=== PATIENT | male | born 1995 | race African-American/Black ===

== ENCOUNTER 2017-04-05 17:48 | Emergency (ER) | payer OTHER ==
[~2017-04-05 17:48] MED LIST: A/T/S 2% GEL30 GM TOP
[2017-04-09 08:41] LABS: CHLAMYDIA TRACH Detected (Not Detected); N GONOR Not Detected (Not Detected)
== END 2017-04-05 18:30 | disposition home or self-care (01) ==
LOC: CED 17:48 → CFTX 17:48 → CED 18:28 → CFTX 18:28
PROVIDERS: Physician Assistant Medical
DX: A54.01 Gonococcal cystitis and urethritis, unspecified (principal); F17.200 Nicotine dependence, unspecified, uncomplicated
CPT/HCPCS: 87491; 87591; 96372; 99283; J0696